=== PATIENT | female | born 1995 | race Caucasian/White ===

== ENCOUNTER 2021-05-30 12:59 | Emergency (ER) | payer OTHER, MEDICAID ==
[~2021-05-30] VITALS: Ht 157.5 cm; Wt 91.6 kg
[2021-05-30 13:00] VITALS: BP 162/94
[2021-05-30] MEDS ORDERED: IBUPROFEN 600 MG TAB PO ONE (13:15)
[2021-05-30] MEDS ORDERED: LORazepam 1 MG TAB PO ONE (13:15)
[2021-05-30] MEDS ORDERED: KETOROLAC 30 MG/ML VIAL IM ONE (13:45)
[2021-05-30] MEDS ORDERED: NACL 0.9% 500 ML IV ONE (13:45)
[2021-05-30] MEDS ORDERED: KETOROLAC 30 MG/ML VIAL IVP ONE (13:55)
[2021-05-30] MEDS ORDERED: CYCL-711 PO (15:36)
[2021-05-30] MEDS ORDERED: IBUP-2213 PO (15:36)
[2021-05-30] MEDS ORDERED: LID5T TP (15:36)
[2021-05-30 15:47] VITALS: BP 162/94
== END 2021-05-30 15:47 | disposition home or self-care (01) ==
LOC: MED 12:59
DX: S16.1XXA Strain of muscle, fascia and tendon at neck level, initial encounter (principal); S86.811A Strain of other muscle(s) and tendon(s) at lower leg level, right leg, initial encounter; R03.0 Elevated blood-pressure reading, without diagnosis of hypertension; F41.9 Anxiety disorder, unspecified; Z79.899 Other long term (current) drug therapy; V89.2XXA Person injured in unspecified motor-vehicle accident, traffic, initial encounter; Y93.89 Activity, other specified; Y92.89 Other specified places as the place of occurrence of the external cause; Y99.8 Other external cause status
CPT/HCPCS: 73560; 96361; 96374; 99283; J1885; J7030; Q0092